=== PATIENT | male | born 1960 | race Caucasian/White ===

== ENCOUNTER 2018-02-12 02:21 | Observation (INO) | payer OTHER ==
[2018-02-12] MEDS ORDERED: Morphine 4 MG/ML VIAL ONE (04:51)
[2018-02-12] MEDS ORDERED: metroNIDAZOLE 250 MG TAB ONE (05:44)
[2018-02-12 05:50] LABS: Actual Bicarbonate (HCO3a) 22.1 mEq/L (22-28); Analyzer IN Cardio ER; CO2 Tension 39.9 mmHg (35.0-45.0); Calcium, Ionized 1.16 mmol/L (1.12-1.30); Carboxyhemoglobin (COHb) 0.8 gm% (0.0-3.0); Hemoglobin (Hb) 14.2 g/dL (14.0-18.0); O2 Tension (PaO2) 99.3 mmHg (80.0-100.0); Potassium - ABG Lab 3.95 mmol/L (3.70-5.30); pH, Arterial 7.36 (7.35-7.45)
[2018-02-12 05:52] LABS: ALV-art Gradient 0.555 (0-20); Puncture Site RRA
[2018-02-12] MEDS ORDERED: Mag-Al 1200 mg/1200 mg/30 ML UDCUP PO PRN (07:55)
[2018-02-12] MEDS ORDERED: Acetaminophen 325 MG TAB PO PRN (07:55)
[2018-02-12] MEDS ORDERED: hydrALAZINE 20 MG/ML VIAL SLOW IVP PRN (07:55)
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
[2018-02-12 08:38] LABS: #Eosinphils 0.3 thou/uL (0.0-0.7); #Lymphocytes 1.4 thou/uL (1.20-3.40); #Monocytes 1.9 thou/uL (0.11-0.59); #Neutrophils 9.5 thou/uL (1.40-6.50); %Basophils 0.4 % (0.0-1.0); %Eosinophils 2.1 % (0.0-10.0); %Lymphocytes 10.9 % (21.0-51.0); %Monocytes 14.3 % (0.0-10.0); %Neutrophils 72.3 % (42.0-75.0); Hemoglobin 13.8 g/dL (14.0-18.0); Mean Corpuscular HGB CONC 31.9 g/dL (32.0-36.0); Mean Corpuscular Hemoglobin 31.2 pg (27.0-31.0); Mean Corpuscular Volume 97.9 fL (78.0-98.0); Mean Platelet Volume 6.4 fL (7.4-10.4); Platelet Count 152 thou/uL (130-400); RBC Distribution Width 12.8 % (11.5-14.5); Red Blood Cell (RBC) Count 4.44 mill/uL (4.70-6.10); White Blood Cell (WBC) Count 13.1 thou/uL (4.8-10.8)
[2018-02-12 08:46] LABS: INR-International Normal Ratio 1.4; Prothrombin Time 17.1 SEC (12.0-14.7)
[2018-02-12 09:04] LABS: Anion Gap 11 mmol/L (10-20); BUN (Urea Nitrogen) 13 mg/dL (8.4-25.7); Calc. Creatinine Clearance 118 mL/min (70-130); Calcium 8.3 mg/dL (7.8-10.44); Carbon Dioxide 25 mmol/L (22-29); Chloride 105 mmol/L (98-107); Estimated GFR-MDRD Greater than 90; Glucose 96 mg/dL (70-105); Potassium 4.8 mmol/L (3.5-5.1); Sodium 136 mmol/L (136-145)
[2018-02-12] MEDS ORDERED: Lidocaine 1% PF 5 ML VIAL ONE (09:37)
--- NOTE | 2018-02-12 11:48 | ULT ---
ULTRASOUND GUIDED PARACENTESIS: HISTORY: Recurrent ascites. FINDINGS: The largest pocket of fluid seen was in the right lower quadrant of the abdomen. After informed cons ent was obtained, the patient was prepped and draped in normal sterile fashion. Local anesthesia was obtained with 1% Xylocaine mixed with sodium bicarb. A small skin incision was made with a #1 scalp el blade and a 6 Russian Yueh catheter was introduced. 3.3 liters of typical straw-colored fluid were obtained. The patient tolerated the procedure well. There were no immediate complications. IMPRESSION: Successful ultrasound-guided aspiration of 3.3 liters of fluid. POS: [facility]
--- NOTE | 2018-02-12 12:29 | RAD ---
PORTABLE CHEST: History: Follow up pleural effusion. Comparison: None. FINDINGS: There is opacification of the lower half of the right hemithorax suggesting a large effusion with ate lectasis or infiltrate. The left lung appears clear. Heart size is difficult to assess due to right l moise opacification. IMPRESSION: Opacification of the lower half of the right hemithorax, most likely related to effusion with atelect asis versus infiltrate. POS: [facility]
[2018-02-12 13:00] LABS: BF Color Yellow; Body Fluid Source Ascites Body Fluid; Clarity Hazy (Clear); RBC Background Count 0.001; Tube # EDTA
[2018-02-12 13:02] LABS: WBC/NonHematic-Auto 1240 /cumm
[2018-02-12 13:06] LABS: BF RBC Count - Manual 1475 /cumm
[2018-02-12 13:10] LABS: BF Segmented Neutrophils 86 %; Cell Count Non Hematic 6 %; Lymphocytes 6 %
--- NOTE | 2018-02-12 13:28 | CON ---
DATE OF CONSULTATION: 02/12/2018 HISTORY OF PRESENT ILLNESS: This is a 57-year-old gentleman from [place], 5 feet 9 inches, 189 pounds, BMI 28 who apparently was transferred here for higher level of care. A CAT scan of his abdomen showed a large amount of ascites and a pleural effusion. He has undergone 2 liters of paracentesis. He has known history of cirrhosis from drinking and hepatitis. He says following his paracentesis this morning he is feeling much better, he has less shortness of breath. Prior to that, he has some coughing and some difficulty breathing, former smoker, former heavy drinker. PAST MEDICAL HISTORY: Cirrhosis, hepatitis C, peritonitis. PAST SURGICAL HISTORY: Abdominal surgery, splenectomy. MEDICATIONS FROM HOME: Thiamine 100 mg, JONY 250, omeprazole 20, Lasix 40, folic acid, spironolactone 25. REVIEW OF SYSTEMS: Otherwise unremarkable. PHYSICAL EXAMINATION: VITAL SIGNS: Saturations 100% on room air, respiration 20, pulse 115, temperature 98, blood pressure 130/85. CHEST: Chest revealed decreased breath sounds in the right base. Left lung unremarkable. There was minimal crackles, no wheezing. CARDIAC: Normal S1-S2. No gallops. ABDOMEN: Distended, but soft. LABORATORY: White count 13,000, H&H is 13 and 43, platelet count is normal. PO2 was 99, pCO2 39.36 on room air. Electrolytes are normal. IMPRESSION: 1. Status post paracentesis, 3.3 liters removed. 2. Right pleural effusion. 3. Cirrhosis. 4. Former alcohol and tobacco abuse. PLAN: Awaiting chest x-ray results to see how much pleural effusion he has. It appears he is much better. Unless he has a very large quantity of fluid I would not try and tap it. I will restart his home medications includes Lasix and spironolactone. I will follow. addendum \\ cxr not much pleurall effusion would not tap now MTDD
[2018-02-12] MEDS: metroNIDAZOLE 500 MG in Premix Bag 1 BAG IVPB SCH ×2 (15:32→22:18)
[2018-02-12] MEDS: traMADol HCl 50 MG TAB PO PRN (18:51)
[2018-02-12] MEDS ORDERED: URSODIOL 250 MG PO SCH (21:00)
[2018-02-13] MEDS: metroNIDAZOLE 500 MG in Premix Bag 1 BAG IVPB SCH ×2 (06:06→13:27)
[2018-02-13 06:16] LABS: #Basophils 0.1 thou/uL (0.0-0.2); #Eosinphils 0.5 thou/uL (0.0-0.7); #Lymphocytes 1.3 thou/uL (1.20-3.40); #Monocytes 1.1 thou/uL (0.11-0.59); #Neutrophils 5.8 thou/uL (1.40-6.50); %Basophils 0.6 % (0.0-1.0); %Eosinophils 5.6 % (0.0-10.0); %Lymphocytes 15.1 % (21.0-51.0); %Monocytes 12.1 % (0.0-10.0); %Neutrophils 66.6 % (42.0-75.0); Hemoglobin 12.2 g/dL (14.0-18.0); Mean Corpuscular HGB CONC 31.9 g/dL (32.0-36.0); Mean Corpuscular Hemoglobin 30.8 pg (27.0-31.0); Mean Corpuscular Volume 96.7 fL (78.0-98.0); Mean Platelet Volume 6.6 fL (7.4-10.4); Platelet Count 132 thou/uL (130-400); RBC Distribution Width 12.8 % (11.5-14.5); Red Blood Cell (RBC) Count 3.95 mill/uL (4.70-6.10); White Blood Cell (WBC) Count 8.7 thou/uL (4.8-10.8)
[2018-02-13 06:28] LABS: Anion Gap 7 mmol/L (10-20); BUN (Urea Nitrogen) 15 mg/dL (8.4-25.7); Calc. Creatinine Clearance 137 mL/min (70-130); Calcium 7.7 mg/dL (7.8-10.44); Carbon Dioxide 25 mmol/L (22-29); Chloride 105 mmol/L (98-107); Estimated GFR-MDRD Greater than 90; Glucose 124 mg/dL (70-105); Potassium 3.6 mmol/L (3.5-5.1); Sodium 133 mmol/L (136-145)
[2018-02-13] MEDS: traMADol HCl 50 MG TAB PO PRN (07:50)
[2018-02-13] MEDS ORDERED: Folic Acid 1 MG TAB PO SCH (09:00)
[2018-02-13] MEDS ORDERED: Furosemide 40 MG TAB PO SCH (09:00)
[2018-02-13] MEDS ORDERED: Spironolactone 25 MG TAB PO SCH (09:00)
[2018-02-13 12:24] VITALS: BP 117/68; TEMP 97.9
--- NOTE | 2018-02-13 12:51 | PRG ---
DATE OF SERVICE: 02/13/2018 SUBJECTIVE: This morning, he has got a slight cough. OBJECTIVE: VITAL SIGNS: Temperature is 98, pulse 91, respirations 20, sats 96_% on room air, blood pressure 108/62. CHEST: Decreased breath sounds in the right base. Left lung unremarkable. CARDIAC: Normal S1 and S2. No gallops. ABDOMEN: Soft. No masses. LABORATORY DATA: White count is 8000, H and H 12 and 38, platelet count is normal. Electrolytes are normal. IMPRESSION: Right pleural effusion, secondary to his massive ascites from end- stage cirrhosis. Right pleural effusion, stable and asymptomatic. PLAN: Avoid thoracentesis. Otherwise, he is very symptomatic. Continue to control his asicites_ with Aldactone and Lasix. DISPOSITION: As per primary care physician. MTDD
[2018-02-13 13:25] VITALS: BMI 27.1
--- NOTE | 2018-02-13 13:31 | PDOC.PN ---
- Subjective Encounter Start Date: 02/13/18 Encounter Start Time: 13:29 Mr. Lucero was seen today in follow-up. He admits to some continues abdominal pain. No new complaints. - Objective Resuscitation Status: Resuscitation Status FULL:Full Resuscitation MAR Reviewed: Yes Vital Signs & Weight: Vital Signs (12 hours) Temp Pulse Resp BP BP Pulse Ox 02/13/18 11:57 97.9 F 91 20 117/68 100 02/13/18 07:38 98.2 F 91 20 108/62 96 02/13/18 04:26 98.4 F 96 19 101/57 L 98 Weight Admit Weight 189 lb 9.6 oz Weight 184 lb I&O: 02/12/18 02/13/18 02/14/18 06:59 06:59 06:59 Intake Total 2330 580 Output Total 750 Balance 1580 580 Result Diagrams: 02/13/18 05:50 02/13/18 05:50 Phys Exam - Physical Examination HEENT: PERRLA Respiratory: no wheezing, no rales, no rhonchi, clear to auscultation bilateral Cardiovascular: RRR, no significant murmur, no rub Gastrointestinal: soft Distended, diffuse tenderness Musculoskeletal: no edema Dx/Plan (1) Cirrhosis of liver with ascites Code(s): K74.60 - UNSPECIFIED CIRRHOSIS OF LIVER; R18.8 - OTHER ASCITES Status : Chronic (2) Hepatitis C Code(s): B19.20 - UNSPECIFIED VIRAL HEPATITIS C WITHOUT HEPATIC COMA Status: Chronic (3) Pleural effusion, right Code(s): J90 - PLEURAL EFFUSION, NOT ELSEWHERE CLASSIFIED Status: Acute - Plan * .
--- NOTE | 2018-02-13 13:46 | DIS ---
DATE OF ADMISSION: 02/12/2018 DATE OF DISCHARGE: 02/13/2018 DISCHARGE DISPOSITION: Back to residential. DISCHARGE DIAGNOSES: 1. Decompensated cirrhosis with ascites. 2. Right pleural effusion. 3. History of hemorrhoids. 4. Chronic hepatitis C. 5. Colitis. DISCHARGE MEDICATIONS: Aldactone which was increased from 25 to 50 mg daily, Cipro 500 mg twice a da y for 5 more days and Flagyl 500 mg 3 times a day for 5 days, Lasix 40 mg daily, folic acid 1 mg carol y, lactulose 30 grams twice a day, omeprazole 20 mg daily, thiamine 100 mg daily, ursodiol 250 mg twi ce a day. PROCEDURES DONE DURING ADMISSION: The patient had a large volume paracentesis with removal of approx imately 3 liters of fluid. CODE STATUS: FULL CODE. ALLERGIES: No known drug allergies. HOSPITAL COURSE: Mr. Lucero is a pleasant 57-year-old gentleman who has a history of cirrhosis, who noted increasing abdominal girth as well as some abdominal discomfort. He has a history of a recent large volume paracentesis in [place]. He also was noted to have a pleural effusion. He was placed in observation and underwent a large volume paracentesis. The fluid was sent for culture and cell c ount and no organisms were seen. The Gram stain was essentially negative. He did not have any fever overnight and remained clinically stable. He was seen by Pulmonology with regards to the pleural ef fusion. There was no need for thoracentesis. The dose of the Aldactone was increased and he was ins tructed on a low sodium diet and he will be able to be discharged back to the correctional system and we will continue Cipro and Flagyl for 5 more days for the possible colitis.
--- NOTE | 2018-02-14 15:17 | EKG ---
Test Reason : Blood Pressure : / mmHG Vent. Rate : 112 BPM Atrial Rate : 112 BPM P-R Int : 122 ms QRS Dur : 078 ms QT Int : 326 ms P-R-T Axes : 029 003 020 degrees QTc Int : 444 ms Sinus tachycardia Cannot rule out Anterior infarct , age undetermined Abnormal ECG Confirmed by ANAY MELENDREZ DO ([id number]), staff editor ANNY MARX ([id number]) on 02/14/2018 3:17:08 PM Referred By: Confirmed By:ANAY MELENDREZ DO
== END 2018-02-13 19:20 ==
LOC: ERS 02:21 → 2SW 06:49
PROVIDERS: ADMIT Hospitalist; ATTEND Hospitalist
PROC: 0W9G3ZZ Drainage of Peritoneal Cavity, Percutaneous Approach (ICD-10-PCS; principal; 2018-02-12)
PROC: BW40ZZZ Ultrasonography of Abdomen (ICD-10-PCS; 2018-02-12)
DX: K70.31 Alcoholic cirrhosis of liver with ascites (principal); J90 Pleural effusion, not elsewhere classified; B18.2 Chronic viral hepatitis C; K51.00 Ulcerative (chronic) pancolitis without complications; F10.11 Alcohol abuse, in remission; Z87.891 Personal history of nicotine dependence; Z79.899 Other long term (current) drug therapy
CPT/HCPCS: 36415; 49083; 71045; 80048; 82805; 85025; 85060; 85610; 87070; 87205; 89051; 93005; 94640; 96365; 96366; 96367; 96374; 96375; A4216; G0378; J1956; J2001; J2270; J7620